=== PATIENT | male | born 1990 | race Caucasian/White ===

== ENCOUNTER 2024-03-02 17:54 | Emergency (ER) | payer MEDICAID, SELFPAY ==
[2024-03-02 18:26] VITALS: BP 129/80; PULSE 54; RESP 17; TEMP 37.1; O2SAT 95; BMI 25.8
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
[2024-03-02] MEDS: KETOROLAC INJ 60 MG/2 ML VIAL 30 MG IM (19:46)
[2024-03-02] MEDS: LIDOCAINE HCL 1% 20 ML VIAL INFL (20:56)
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
== END 2024-03-02 21:44 | disposition home or self-care (01) ==
PROVIDERS: Emergency Provider Emergency Medicine; PCP Family Medicine
DX: S81.012A Laceration without foreign body, left knee, initial encounter (principal); V29.91XA Electric (assisted) bicycle rider (driver) (passenger) injured in unspecified traffic accident, initial encounter
CPT/HCPCS: 12002; 73564; 96372; 99283; J1885; J3490